=== PATIENT | female | born 1980 | race Caucasian/White ===

== ENCOUNTER 2024-09-03 12:14 | Emergency (ER) | payer BC ==
[2024-09-03] MEDS: Ketorolac 30 MG/ML SDV IM ONE (13:55)
[2024-09-03] MEDS: Cyclobenzaprine 10 MG Tab PO ONE (15:02)
[2024-09-03] MEDS: HYDROmorphone 1 MG/ML Syringe IM ONE (15:02)
== END 2024-09-03 16:01 | disposition home or self-care (01) ==
LOC: JP.ED 12:14
DX: M54.50 Low back pain, unspecified (principal); J45.909 Unspecified asthma, uncomplicated; Z79.899 Other long term (current) drug therapy; Z88.8 Allergy status to other drugs, medicaments and biological substances; Z88.1 Allergy status to other antibiotic agents
CPT/HCPCS: 96372; 99283; A9270; J1171; J1885